=== PATIENT | female | born 1970 | race Two or more races ===

== ENCOUNTER → 2017-01-09 | Outpatient (CLI) | payer BC ==
[~2017-01-09] VITALS: Ht 165.1 cm; Wt 68.9 kg
[2017-01-09 12:52] LABS: BUN/Creatinine Ratio 15.5; Calcium 10.1 mg/dL (8.5-10.1); Magnesium 2.3 mg/dL (1.6-2.6); Potassium 4.2 mmol/L (3.5-5.1)
== END | disposition home or self-care (01) ==
LOC: Rad HDHVI 08:02
PROVIDERS: ATTEND Internal Medicine Cardiovascular Disease
DX: I10 Essential (primary) hypertension (principal); E83.42 Hypomagnesemia
CPT/HCPCS: 36415; 80048; 83735; 93017

== ENCOUNTER → 2019-01-11 | Outpatient (CLI) | payer OTHER | END | disposition home or self-care (01) | LOC: Rad HDHVI 15:39 | PROVIDERS: ATTEND Internal Medicine Cardiovascular Disease | DX: M40.294 Other kyphosis, thoracic region (principal); I10 Essential (primary) hypertension; R06.02 Shortness of breath | CPT/HCPCS: 71046; 93306 ==